=== PATIENT | female | born 1955 | race Caucasian/White ===

== ENCOUNTER 2017-06-21 19:58 | Emergency (ER) | payer MEDICAID, OTHER, SELFPAY ==
[2017-06-21 20:07] VITALS: BP 119/72; PULSE 83; RESP 26; TEMP 98.6; O2SAT 98; BMI 26.7
--- NOTE | 2017-06-21 20:15 | ED PDOC ---
Arrival/HPI - General Chief Complaint: Chest Pain Time Seen by Provider: 06/21/17 19:59 Historian: Patient - History of Present Illness Narrative History of Present Illness (Text): 06/21/17 20:12 A 61 year old female whose past medical history includes hypertension, diabetes , hyperlipidemia, presents to the emergency department with a complaint of mid- sternal chest discomfort. She states that the pain began this evening and notes associated dyspnea on exertion. The patient denies headache, chills, shortness of breath, abdominal pain, vomiting, diarrhea, nausea, back/ neck pain, leg pain , cough, sore throat, urinary/bowel symptoms. Time/Duration: Other (This Evening) Symptom Onset: Sudden Symptom Course: Unchanged Activities at Onset: Rest, Light Context: Home Past Medical History - Provider Review Nursing Documentation Reviewed: Yes - Infectious Disease Hx of Infectious Diseases: None - Tetanus Immunization Tetanus Immunization: Unknown - Cardiac Hx Hypertension: Yes - Pulmonary Other/Comment: tobacco smoker (2packs/day) - Neurological Hx Neurological Disorder: No - HEENT Hx HEENT Disorder: No - Renal Hx Renal Disorder: No - Endocrine/Metabolic Hx Endocrine Disorders: Yes Hx Diabetes Mellitus Type 2: Yes - Hematological/Oncological Hx Blood Disorders: No - Integumentary Hx Dermatological Disorder: No - Musculoskeletal/Rheumatological Hx Musculoskeletal Disorders: No - Gastrointestinal Hx Gastrointestinal Disorders: Yes Hx Colitis: Yes - Genitourinary/Gynecological Hx Genitourinary Disorders: No - Psychiatric Hx Depression: No Hx Substance Use: No - Past Surgical History Past Surgical History: No Previous - Surgical History Hx Appendectomy: Yes - Anesthesia Hx Anesthesia: No Hx Anesthesia Reactions: No Hx Malignant Hyperthermia: No - Suicidal Assessment Feels Threatened In Home Enviroment: No Family/Social History - Physician Review Nursing Documentation Reviewed: Yes Family/Social History: No Known Family HX Smoking Status: Heavy Smoker > 10 Cigarettes Daily Hx Alcohol Use: No Hx Substance Use: No Hx Substance Use Treatment: No Allergies/Home Meds Allergies/Adverse Reactions: Allergies No Known Allergies Allergy (Verified 08/06/15 20:02) Home Medications: Home Meds Medication Instructions Recorded Confirmed Atenolol 50 mg PO BID 10/01/13 03/16/16 GlipiZIDE [Glucotrol] 10 mg PO DAILY 10/01/13 03/16/16 Losartan Potassium [Cozaar] 25 mg PO DAILY 02/26/16 03/16/16 Saxagliptin HCl/Metformin HCl 1 ter PO DAILY 02/26/16 03/16/16 [Kombiglyze Xr 500 mg-5 mg] Sertraline [Zoloft] 50 mg PO DAILY 02/26/16 03/16/16 Simvastatin 10 mg PO DAILY 03/16/16 03/16/16 Review of Systems - Physician Review All systems were reviewed & negative as marked: Yes - Review of Systems Constitutional: absent: Fevers, Night Sweats ENT: absent: Sore Throat Respiratory: absent: SOB, Cough Cardiovascular: Chest Pain (Mid- Sternal chest pain ), CHERRY Gastrointestinal: absent: Abdominal Pain, Stool Changes, Diarrhea, Nausea, Vomiting Genitourinary Female: absent: Urine Output Changes Musculoskeletal: absent: Back Pain, Neck Pain, Other (Leg Pain) Neurological: absent: Headache, Dizziness Physical Exam Vital Signs Reviewed: Yes Vital Signs Temp Pulse Resp BP Pulse Ox 06/21/17 20:04 98.6 F 83 26 H 119/72 98 Temperature: Afebrile Blood Pressure: Normal Pulse: Regular Respiratory Rate: Tachypneic Appearance: Positive for: Non-Toxic, Other (Pt appears anxious, in no acute distress) Pain Distress: None Mental Status: Positive for: Alert and Oriented X 3 - Systems Exam Head: Present: Atraumatic, Normocephalic Pupils: Present: PERRL Extroacular Muscles: Present: EOMI Conjunctiva: Present: Normal Mouth: Present: Moist Mucous Membranes Neck: Present: Normal Range of Motion Respiratory/Chest: Present: Clear to Auscultation, Good Air Exchange. No: Respiratory Distress, Accessory Muscle Use Cardiovascular: Present: Regular Rate and Rhythm, Normal S1, S2. No: Murmurs Abdomen: Present: Normal Bowel Sounds. No: Tenderness, Distention, Peritoneal Signs Back: Present: Normal Inspection Upper Extremity: Present: Normal Inspection. No: Cyanosis, Edema Lower Extremity: Present: Normal Inspection. No: Edema Neurological: Present: GCS=15, CN II-XII Intact, Speech Normal Skin: Present: Warm, Dry, Normal Color. No: Rashes Psychiatric: Present: Alert, Oriented x 3, Normal Insight, Normal Concentration Medical Decision Making ED Course and Treatment: 06/21/17 20:17 Impression: A 61 year old female presents to the emergency department with mid sternal chest discomfort with dyspnea on exertion that began this evening. Plan: -- EKG -- Chest X-Ray -- Labs -- Aspirin -- Reassess and disposition Prior Visits: Notes and results from previous visits were reviewed. On 03/16/16, the patient was seen in the emergency department after a mechanical fall and pain to her knees and wrists. The patient was discharged home on Naprosyn and advised to follow up with her PMD. Progress Notes: EKG: Ordered, reviewed, and independently interpreted the EKG. Rate : 81 BPM Rhythm : NSR Interpretation : LVH, No ST-T changes 06/21/17 21:30 Chest xray: No acute process, interpreted by me. 06/21/17 21:32 Leaving Against Medical Advice (AMA): The patient is choosing to leave against medical advice. I have personally explained to the patient that choosing to do so may result in permanent bodily harm or . I have discussed at great length that without further evaluation and monitoring there may be unforeseen circumstances and/or deterioration causing permanent bodily harm or as a result of their choice. The patient is alert, oriented, and shows the mental capacity to make clear decisions regarding the patients health care at this time. The patient continues to wish to leave against medical advice. The patient has been advised that they should return to the emergency room immediately if they change their mind at any time, or if their condition begins to change or worsen in any way. - Lab Interpretations Lab Results: 06/21/17 20:34 06/21/17 20:34 Lab Results 06/21/17 20:34: WBC 9.2, RBC 5.05, Hgb 15.7, Hct 45.8, MCV 90.7, MCH 31.1, MCHC 34.3, RDW 13.8, Plt Count 466 H, MPV 9.4 06/21/17 20:34: Sodium 142, Potassium 4.2, Chloride 108 H, Carbon Dioxide 21, Anion Gap 17, BUN 18, Creatinine 0.6 L, Est GFR ( Amer) > 60, Est GFR ( Non-Af Amer) > 60, Random Glucose 123 H, Calcium 10.3, Total Bilirubin 0.6, AST 35, ALT 32, Alkaline Phosphatase 118, Lactate Dehydrogenase 364, Total Creatine Kinase 23 L, Troponin I < 0.01, NT-Pro-B Natriuret Pep 161, Total Protein 7.8, Albumin 4.4, Globulin 3.4, Albumin/Globulin Ratio 1.3 06/21/17 20:34: PT 11.9, INR 1.09 H, APTT 36.9 H I have reviewed the lab results: Yes - RAD Interpretation Radiology Orders: 06/21/17 20:08 CHEST PORTABLE [RAD] Stat - EKG Interpretation Interpreted by ED Physician: Yes Type: 12 lead EKG - Medication Orders Current Medication Orders: Discontinued Medications Aspirin (Aspirin) 325 mg PO ONCE STA Stop: 06/21/17 20:13 Last Admin: 06/21/17 20:31 Dose: 325 mg - Scribe Statement The provider has reviewed the documentation as recorded by the Scotty Lucas Provider Scotty Attestation: All medical record entries made by the Trentonibsteph were at my direction and personally dictated by me. I have reviewed the chart and agree that the record accurately reflects my personal performance of the history, physical exam, medical decision making, and the department course for this patient. I have also personally directed, reviewed, and agree with the discharge instructions and disposition Disposition/Present on Arrival - Present on Arrival Any Indicators Present on Arrival: No History of DVT/PE: No History of Uncontrolled Diabetes: No Urinary Catheter: No History of Decub. Ulcer: No History Surgical Site Infection Following: None - Disposition Have Diagnosis and Disposition been Completed?: Yes Diagnosis: Chest pain Disposition: AGAINST MEDICAL ADVICE Disposition Time: 21:33 Condition: STABLE Discharge Instructions (ExitCare): Chest Pain (ED) Forms: [employer] (Vietnamese)
[2017-06-21 20:41] LABS: HEMATOCRIT 45.8 % (36.0-48.0); MEAN CELL VOLUME 90.7 fl (80.0-105.0); MEAN CORPUSCULAR HEMOGLOBIN 31.1 pg (25.0-35.0); MEAN CORPUSCULAR HGB CONC 34.3 g/dl (31.0-37.0); MEAN PLATELET VOLUME 9.4 fl (7.0-11.0); RED CELL DISTRIBUTION WIDTH 13.8 % (11.5-14.5); WHITE BLOOD COUNT 9.2 10^3/ul (4.5-11.0)
[2017-06-21 20:54] LABS: ALB/GLOB RATIO 1.3 (1.1-1.8); ALKALINE PHOSPHATASE 118 U/L (38-126); ALT/SGPT 32 U/L (7-56); AST/SGOT 35 U/L (14-36); BILIRUBIN,TOTAL 0.6 mg/dL (0.2-1.3); BLOOD UREA NITROGEN 18 mg/dL (7-21); CALCIUM 10.3 mg/dL (8.4-10.5); CARBON DIOXIDE 21 mmol/L (21-33); CHLORIDE 108 mmol/L (98-107); GFR AFRICAN-AMERICAN > 60; GLUCOSE,RANDOM 123 mg/dL (70-110); POTASSIUM 4.2 mmol/L (3.6-5.0); SODIUM 142 mmol/L (132-148); TOTAL PROTEIN 7.8 g/dL (5.8-8.3)
[2017-06-21 21:03] LABS: INR 1.09 (0.93-1.08); PARTIAL THROMBOPLASTIN TIME 36.9 Seconds (25.1-36.5)
[2017-06-21 21:07] LABS: TROPONIN I < 0.01 ng/mL
--- NOTE | 2017-06-22 10:26 | RAD ---
HISTORY: chest pain COMPARISON: 02/26/2016 FINDINGS: LUNGS: No active pulmonary disease. PLEURA: No significant pleural effusion identified, no pneumothorax apparent. CARDIOVASCULAR: Normal. OSSEOUS STRUCTURES: Similar thoracic spondylosis - prominent right lateral inferior marginal osteophyte VISUALIZED UPPER ABDOMEN: Normal. OTHER FINDINGS: None. IMPRESSION: No interval pathology noted
--- NOTE | 2017-06-22 17:03 | CARD ---
APPROVED REPORT EKG Measurement Heart [id number] <Conclusion> Normal sinus rhythm Minimal voltage criteria for LVH, may be normal variant Borderline ECG
== END 2017-06-21 21:37 | disposition left against medical advice (07) ==
LOC: ED 19:58
DX: R07.9 Chest pain, unspecified (principal); E11.9 Type 2 diabetes mellitus without complications; E78.5 Hyperlipidemia, unspecified; F17.210 Nicotine dependence, cigarettes, uncomplicated; I10 Essential (primary) hypertension

== ENCOUNTER 2018-03-28 20:47 | Emergency (ER) | payer OTHER ==
--- NOTE | 2018-03-28 21:16 | ED PDOC ---
Arrival/HPI <Regulo Garces - Last Filed: 03/28/18 22:05> - General Historian: Patient - History of Present Illness Time/Duration: Prior to Arrival Symptom Onset: Sudden Symptom Course: Unchanged Quality: Aching, Stabbing Context: Slipped <Rudi Alexander - Last Filed: 03/28/18 22:07> - General Chief Complaint: Trauma Time Seen by Provider: 03/28/18 20:51 - History of Present Illness Narrative History of Present Illness (Text): 03/28/18 21:13 Patient is a 62 year old Slovak-speaking female with PMH of HTN, DM2, and HLD who presents to the ED s/p fall one hour earlier. She states that she was taking the garbage out, was walking down stairs, and then fell over 4 stairs on her lower back. She states that she also hit her head. She states the pain is greatest in her lower back. She denies fever, chills, JUARES, blurry vision, nausea/ vomiting, CP, SOB, or any other symptoms. spray mixer #[id number] was used. (Rudi Alexander) Past Medical History - Provider Review Nursing Documentation Reviewed: Yes - Travel History Have you recently traveled outside [place] w/in the past 3 mons?: No - Infectious Disease Hx of Infectious Diseases: None - Tetanus Immunization Tetanus Immunization: Unknown - Cardiac Hx Cardiac Disorders: Yes Hx Hypertension: Yes - Pulmonary Hx Respiratory Disorders: Yes Other/Comment: tobacco smoker (2packs/day) - Neurological Hx Neurological Disorder: No - HEENT Hx HEENT Disorder: No - Renal Hx Renal Disorder: No - Endocrine/Metabolic Hx Endocrine Disorders: Yes Hx Diabetes Mellitus Type 2: Yes - Hematological/Oncological Hx Blood Disorders: No - Integumentary Hx Dermatological Disorder: No - Musculoskeletal/Rheumatological Hx Musculoskeletal Disorders: No - Gastrointestinal Hx Gastrointestinal Disorders: Yes Hx Colitis: Yes - Genitourinary/Gynecological Hx Genitourinary Disorders: No - Psychiatric Hx Psychophysiologic Disorder: No Hx Substance Use: No - Past Surgical History Past Surgical History: No Previous - Surgical History Hx Appendectomy: Yes - Anesthesia Hx Anesthesia: No Hx Anesthesia Reactions: No Hx Malignant Hyperthermia: No - Suicidal Assessment Feels Threatened In Home Enviroment: No <Rudi Alexander - Last Filed: 03/28/18 22:07> Family/Social History - Physician Review Nursing Documentation Reviewed: Yes Family/Social History: Diabetes (father), CAD/MD (mother) Smoking Status: Heavy Smoker > 10 Cigarettes Daily Hx Alcohol Use: No Hx Substance Use: No Hx Substance Use Treatment: No <Rudi Alexander - Last Filed: 03/28/18 22:07> Allergies/Home Meds <Regulo Garces - Last Filed: 03/28/18 22:05> <Rudi Alexander - Last Filed: 03/28/18 22:07> Allergies/Adverse Reactions: Allergies No Known Allergies Allergy (Verified 03/28/18 21:04) Home Medications: Home Meds Medication Instructions Recorded Confirmed Atenolol 50 mg PO BID 10/01/13 03/16/16 GlipiZIDE [Glucotrol] 10 mg PO DAILY 10/01/13 03/16/16 Losartan Potassium [Cozaar] 25 mg PO DAILY 02/26/16 03/16/16 Saxagliptin HCl/Metformin HCl 1 ter PO DAILY 02/26/16 03/16/16 [Kombiglyze Xr 500 mg-5 mg] Sertraline [Zoloft] 50 mg PO DAILY 02/26/16 03/16/16 Simvastatin 10 mg PO DAILY 03/16/16 03/16/16 Review of Systems - Physician Review All systems were reviewed & negative as marked: Yes <Regulo Garces - Last Filed: 03/28/18 22:05> - Review of Systems Constitutional: absent: Fatigue, Weight Change Eyes: absent: Vision Changes ENT: absent: Hearing Changes, TMJ Pain Respiratory: absent: SOB, Cough Cardiovascular: absent: Chest Pain, Edema Gastrointestinal: absent: Abdominal Pain, Nausea, Vomiting Genitourinary Female: absent: Dysuria Musculoskeletal: Back Pain Skin: absent: Rash, Pruritis Neurological: absent: Headache Endocrine: absent: Diaphoresis Hemo/Lymphatic: absent: Adenopathy Psychiatric: absent: Anxiety, Depression <Rudi Alexander - Last Filed: 03/28/18 22:07> Physical Exam Vital Signs Reviewed: Yes Temperature: Afebrile Blood Pressure: Normal Pulse: Regular Respiratory Rate: Normal Appearance: Positive for: Uncomfortable, Other (anxious appearing) Pain Distress: Moderate Mental Status: Positive for: Alert and Oriented X 3 - Systems Exam Head: Present: Atraumatic, Normocephalic Pupils: Present: PERRL Extroacular Muscles: Present: EOMI Conjunctiva: Present: Normal Mouth: Present: Moist Mucous Membranes Pharnyx: Present: Normal. No: ERYTHEMA, EXUDATE Nose (External): Present: Atraumatic Neck: Present: Normal Range of Motion. No: JVD Respiratory/Chest: Present: Clear to Auscultation. No: Wheezes, Rales, Rhonchi Cardiovascular: Present: Regular Rate and Rhythm, Normal S1, S2. No: Murmurs, Rub, Gallop Abdomen: No: Tenderness, Rebound, Guarding Back: Present: Midline Tenderness, Paraspinal Tenderness Upper Extremity: Present: Normal Inspection, Normal ROM, Neurovascularly Intact. No: Cyanosis, Edema, Tenderness, Swelling, Temperature Abnormalties Lower Extremity: Present: Normal Inspection, Normal ROM, Neurovascularly Intact. No: Edema, Tenderness, Swelling, Temperature Abnormalties Neurological: Present: Speech Normal, Motor Func Grossly Intact, Gait Normal Skin: Present: Warm, Dry Psychiatric: Present: Alert, Oriented x 3 <Rudi Alexander - Last Filed: 03/28/18 22:07> Vital Signs Temp Pulse Resp BP Pulse Ox 03/28/18 21:04 98.3 F 78 18 136/81 97 Medical Decision Making <Regulo Garces - Last Filed: 03/28/18 22:05> - RAD Interpretation Cover Seamer: ED Physician <Rudi Alexander - Last Filed: 03/28/18 22:07> ED Course and Treatment: 03/28/18 21:29 Seen and examined with the resident. Our history and physical exam reveals Slov[place] woman requiring an spray mixer who fell down several steps at home while taking out the garbage injuring her lower back. There was no extremity trauma. She did hit her head, but there was no loss of consciousness. No dizziness numbness tingling or paresthesias. No weakness. No neck pain. Chronic low back pain. In agreement with resident note which contains more details about the patient. Patient was seen and evaluated with resident. Came up with plan and treatment together. 62 year old male presents complaining of lower back pain s/p fall one hour prior to arrival. Plan: -- Toradol -- LS Spine AP/LAT X-ray -- LS Spine w/ Obl X-ray (Regulo Garces) 03/28/18 21:18 -Patient in pain but states she would prefer no IV access -Patient agreed to dose of IM toradol 03/28/18 21:46 -Patient seen after xray ambulating to bathroom without any deficits -Now she is refusing IM toradol 03/28/18 21:59 -Patient feels better and wishes to return home at this time -Flexeril 5 mg TID prescription given (Ruid Alexander) - RAD Interpretation Narrative RAD Interpretations (Text): 03/28/18 22:00 Xray lumbar spine negative for fracture (Rudi Alexander) Radiology Orders: 03/28/18 21:13 LS SPINE AP/LAT [RAD] Stat 03/28/18 21:15 LS SPINE WITH OBL > 18 YRS OLD [RAD] Stat - Medication Orders Current Medication Orders: Discontinued Medications Ketorolac Tromethamine (Toradol) 15 mg IM STAT STA Stop: 03/28/18 21:14 Last Admin: 03/28/18 21:50 Dose: Not Given Non-Admin Reason: Patient Refused - PA / CAREER ADVISOR / Resident Statement MD/DO has reviewed & agrees with the documentation as recorded. MD/DO has examined the patient and agrees with the treatment plan. - Scribe Statement The provider has reviewed the documentation as recorded by the Scribe <Regulo Garces - Last Filed: 03/28/18 22:05> <Rudi Alexander - Last Filed: 03/28/18 22:07> - Scribe Statement Rubia Iverson Provider Scribe Attestation: All medical record entries made by the Scribe were at my direction and personally dictated by me. I have reviewed the chart and agree that the record accurately reflects my personal performance of the history, physical exam, medical decision making, and the department course for this patient. I have also personally directed, reviewed, and agree with the discharge instructions and disposition. (Regulo Garces) Disposition/Present on Arrival - Present on Arrival Any Indicators Present on Arrival: No History of DVT/PE: No History of Uncontrolled Diabetes: No Urinary Catheter: No History of Decub. Ulcer: No - Disposition Have Diagnosis and Disposition been Completed?: Yes Patient Plan: Discharge <Regulo Garces - Last Filed: 03/28/18 22:05> - Present on Arrival Any Indicators Present on Arrival: No History of DVT/PE: No History of Uncontrolled Diabetes: No Urinary Catheter: No History of Decub. Ulcer: No History Surgical Site Infection Following: None - Disposition Have Diagnosis and Disposition been Completed?: Yes Disposition Time: 21:55 Patient Plan: Discharge <AlexanderRudi - Last Filed: 03/28/18 22:07> - Disposition Diagnosis: Fall (on) (from) other stairs and steps, initial encounter, Back contusion Disposition: HOME/ ROUTINE Patient Problems: Current Active Problems Problem Status Onset Fall (on) (from) other stairs and steps, initial encounter Acute Condition: FAIR Discharge Instructions (ExitCare): Contusion (DC) Prescriptions: Cyclobenzaprine [Flexeril] 5 mg PO TID #15 tab Forms: [employer] ([place])
[2018-03-28 22:08] VITALS: RESP 18; BMI 28.8
[2018-03-28 22:16] VITALS: BP 132/74; PULSE 72; TEMP 98.2; O2SAT 99
--- NOTE | 2018-03-29 09:48 | RAD ---
Date of service: 03/28/2018 PROCEDURE: Radiographs of the Lumbar Spine. HISTORY: trauma COMPARISON: 08/06/2015 CT lumbar spine FINDINGS: BONES: Normal alignment. No listhesis. No fracture. DISC SPACES: Unremarkable. OTHER FINDINGS: Constipation without fecal impaction or obstruction. IMPRESSION: Unremarkable radiographs of the lumbar spine.
== END 2018-03-28 22:05 | disposition home or self-care (01) ==
LOC: ED 20:47
DX: S30.0XXA Contusion of lower back and pelvis, initial encounter (principal); W10.9XXA Fall (on) (from) unspecified stairs and steps, initial encounter; E11.9 Type 2 diabetes mellitus without complications; E78.5 Hyperlipidemia, unspecified; I10 Essential (primary) hypertension; F17.210 Nicotine dependence, cigarettes, uncomplicated